=== PATIENT | male | born 1995 | race Caucasian/White ===

== ENCOUNTER 2021-09-06 09:10 | Outpatient (CLI) | payer OTHER, SELFPAY ==
--- NOTE | ~2021-09-06 | US_ITS ---
EXAMINATION: US retroperitoneal duplex ltd DATE: 09/06/2021 09:43 INDICATION: hypertension TECHNIQUE: Multiple grayscale, color Doppler, and pulsed Doppler images of the kidneys and renal tevin logan were obtained. COMPARISON: None. FINDINGS: The aorta peak systolic velocity is 84 cm/s with normal triphasic waveforms. The right renal artery p eak systolic velocity is 91 cm/s in the proximal segment, 78 cm/s in the mid segment, and 53 cm/s in the distal segment. The left renal artery peak systolic velocity is 97 cm/s in the proximal segment, 89 cm/s in the mid segment, and 70 cm/s in the distal segment. IMPRESSION: 1. No Doppler evidence of renal artery stenosis. Reviewed, dictated and finalized at location B.
== END 2021-09-06 09:11 | disposition home or self-care (01) ==
LOC: CHSIMG 09:12
PROVIDERS: PCP Nurse Practitioner Adult Health; Visit Provider Specialist
DX: I10 Essential (primary) hypertension (principal)
CPT/HCPCS: 93976

== ENCOUNTER 2022-03-22 16:03 | Outpatient (RCR) | payer OTHER, SELFPAY ==
--- NOTE | 2022-03-22 17:57 | PTOPEVAL1 ---
Assessment and note entered by Nafias Duong DPT Evaluation Information Assessment Status Evaluation Diagnosis Imbalance, vertigo Onset 08/11/2019 Subjective Information Pt reports that since August 2019, he has been dealing with vertigo on and off. 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 He has had several surgeries on his R ear which has led to this hearing problem (tonally deaf), and a middle ear reconstruction on his L ear. He reports vertigo and disequilibrium, but denies lightheadedness. Pt reports tinnitus in both ears, some hearing loss in his L ear, and aural fullness in his L ear. He denies symptoms with pressure changes. Pt reports frequent headaches in multiple locations of his head including along his forehead. Pt has hypertension and takes BP medications regularly. He has tried dramamine but felt this made his symptoms worse. Pt denies seasonal allergies, but reports frequent ear infections in both ears as a kid. He reports dizziness when using stairs, sitting and watching TV, and moving his head fast. Symptom duration can vary from minutes to hours to days. Pt reports some falls due dizziness but no injuries. He has not hit his head during these falls. Pt reports that for the most part, he feels sleep is mostly unaffected. He reports taking a - myocin drug in the past for short duration. Reported Pain Level Pain Score 0: Self Report Assessment PT Clinical Summary Pt presents to physical therapy due to symptoms of dizziness and imbalance since 08/2019. He demonstrates impaired static and dynamic balance, impaired central oculomotor receptive processing, impaired cerebellar adaptive coordination, and peripheral motion sensitivity. At this time, canalithic involvement is unlikely due to negative symptom response and nystagmus with bilateral lydia -hallpike, supine head roll, and supine head hanging test this date. Pt presents with signs and symptoms consistent with potential vestibular hypofunction or Persisent Postural Perceptual Dizziness. He was provided with an HEP focused on improving peripheral motion sensitivity, central oculomotor receptive processing, and somatosensory integration strategies. He will benefit from skilled PT to improve the aforementioned impairments, facilitat
--- NOTE | 2022-04-23 18:07 | PTOPPROG ---
Assessment and note entered by Nafisa Duong DPT Evaluation Information Assessment Status Progress Diagnosis Imbalance, vertigo Onset 08/11/2019 Subjective Information Pt arrives to PT after 3.5 week hiatus from PT due to a family friend passing as well as the flue. He reports he got a fever for the first time since he had dizziness and this gave him vertigo for several hours. Since he was so sick, he wasn't able to perform his exercises until this last Friday. He feels that his symptoms are staying about the same and feels that the exercises feel the same. Assessment PT Clinical Summary Pt presents to PT after 3.5 week hiatus from PT. His symptoms remain relatively unchanged with interventions and activities at home. He continues to demonstrate impaired static/dynamic balance, impaired central oculomotor receptive processing, impaired cerebellar adaptive coordination, and peripheral motion sensitivity with large amplitude movements. Pt continues to demonstrate signs and symptoms consistent with potential vestibular hypofunction or Persistent Postural Perceptual Dizziness. MSQ was performed to identify positions of increased symptoms. All symptoms lasted less than 10 sec, but patient had increased symptoms with standing 180 turns, supine to sitting, and sitting with the L ear tipped down towards the R knee. He was educated to continue his current HEP until his next session on , and that interventions will be progressed to walking to simulate more functional circumstances, and habituation exercises will be continued in positions/activities of increased discomfort. He is likely to benefit from continued skilled PT to facilitate symptom relief, improve the aforementioned impairments, reduce risk for falls, and return to functional and recreational activities. Plan of Care PT Services Indicated Yes Treatment Frequency and 2x week for remaining 4 visits Duration These treatments will address the objective and functional deficits as defined above. The patient will be advanced safely and appropriately in order for the patient to progress towards his/her prior level of function. Additional exercises will be introduced and as well as a comprehensive home exercise program upon discharge, if needed, ?to ensure carryover of functional gains achieved in the clinic. This treatment plan has been reviewed and agreement upon by the patient.
--- NOTE | 2022-05-21 18:10 | PTOPDC ---
Assessment and note entered by Nafsia Duong DPT Evaluation Information Assessment Status Discharge Diagnosis Imbalance, vertigo Onset 08/11/2019 Subjective Information Pt reports that his symptoms are slightly worse today. He thinks this might be because he was cutting a lot of vegetables and repetitively looking down and up. He reports that he does usually cook so he is unsure why it is more symptomatic today. He reports a stumble the other day when using the stairs but not a full fall. He has his follow-up with his MD on August 15. Reported Pain Level Pain Score 0: Self Report Assessment PT Clinical Summary Pt presents to PT without significant improvements in static/dynamic balance, central oculomotor receptive processing, cerebellar adaptive coordination, and peripheral motion sensitivity. PT consisted of 3 months of 8 total sessions with a focus on vestibulo-ocular and saccadic interventions, static/dynamic balance, and habituations to symptomatic activities. Due to a mix of insignificant changes in objective testing and patient reported insignificant improvements in quality of life, patient is to be discharged from skilled vestibular rehab at this time. He was educated on continuing to stay active with in his regular daily life to maintain his current functional status. He is to follow-up with his referring MD regarding his POC going forward and any more suitable treatments for his condition. Plan of Care PT Services Indicated No
== END 2022-05-21 10:07 | disposition home or self-care (01) ==
LOC: CHSPT 16:03
DX: R26.89 Other abnormalities of gait and mobility (principal); R42 Dizziness and giddiness
CPT/HCPCS: 97110; 97162